=== PATIENT | female | born 1995 | race Caucasian/White ===

== ENCOUNTER 2022-09-21 13:42 | Emergency (ER) | payer MEDICAID ==
[2022-09-21] MEDS ORDERED: Prochlorperazine 10 MG/2 ML SDV IVPUSH ONE (14:22)
[2022-09-21] MEDS ORDERED: diphenhydrAMINE 50 MG/ML SDV IVPUSH ONE (14:22)
[2022-09-21] MEDS ORDERED: Dexamethasone 4 MG/ML SDV IVPUSH STA (14:22)
[2022-09-21] MEDS ORDERED: HYDROmorphone 0.5 MG/0.5 ML Syringe IVPUSH ONE (14:22)
[2022-09-21] MEDS ORDERED: Sodium Chloride 0.9% 10 ML Syringe FLUSH PRN (14:22)
[2022-09-21] MEDS ORDERED: Sodium Chloride 0.9% 1,000 ML IV SCH (14:30)
== END 2022-09-21 15:45 | disposition home or self-care (01) ==
LOC: JP.ED 13:42
DX: O99.352 Diseases of the nervous system complicating pregnancy, second trimester (principal); G43.909 Migraine, unspecified, not intractable, without status migrainosus; Z3A.16 16 weeks gestation of pregnancy
CPT/HCPCS: 96361; 96374; 96375; 99283; J0780; J1100; J1170; J1200; J3490; J7030